=== PATIENT | female | born 1985 ===

== ENCOUNTER 2017-09-04 10:03 | Emergency (ER) | payer SELFPAY ==
[2017-09-04 10:10] VITALS: O2SAT 100
[2017-09-04 14:31] VITALS: BP 118/70; PULSE 61; RESP 16; TEMP 98.3
== END 2017-09-04 14:30 | disposition home or self-care (01) ==
LOC: H.ER 10:03
DX: M54.9 Dorsalgia, unspecified (principal)

== ENCOUNTER 2017-09-24 08:55 | Emergency (ER) | payer OTHER, SELFPAY ==
[2017-09-24 09:09] VITALS: TEMP 97.9; BMI 23.8
[2017-09-24 09:59] LABS: BASO % 0.5 % (0.0-2.0); EOS # 0.1 K/uL (0.0-0.7); EOS % 2.4 % (0.0-4.0); HEMATOCRIT 38.4 % (34.0-47.0); LYMPH # 1.3 K/uL (1.0-4.3); MEAN CELL VOLUME 89.2 fl (81.0-99.0); MEAN CORPUSCULAR HEMOGLOBIN 30.9 pg (27.0-31.0); MEAN CORPUSCULAR HGB CONC 34.7 g/dL (33.0-37.0); MEAN PLATELET VOLUME 7.6 fl (7.2-11.7); MONO # 0.5 K/uL (0.0-0.8); MONO % 8.1 % (0.0-10.0); NRBC % 0.1 % (0.0-0.0); RED CELL DISTRIBUTION WIDTH 12.8 % (11.5-14.5); WHITE BLOOD COUNT 5.9 K/uL (4.8-10.8)
[2017-09-24 10:00] LABS: ALB/GLOB RATIO 1.4 (1.0-2.1); ALKALINE PHOSPHATASE 81 U/L (38-126); ALT/SGPT 33 U/L (9-52); AST/SGOT 29 U/L (14-36); BILIRUBIN,TOTAL 0.3 mg/dl (0.2-1.3); BLOOD UREA NITROGEN 7 mg/dl (7-17); CALCIUM 9.8 mg/dL (8.4-10.2); CARBON DIOXIDE 26 mmol/L (22-30); CHLORIDE 107 mmol/L (98-107); GFR AFRICAN-AMERICAN > 60; GLUCOSE,RANDOM 90 mg/dL (65-105); PARTIAL THROMBOPLASTIN TIME 29.9 Seconds (25.6-37.1); POTASSIUM 3.7 MMOL/L (3.6-5.0); SODIUM 144 mmol/l (132-148); TOTAL PROTEIN 7.7 G/DL (6.3-8.2)
--- NOTE | 2017-09-24 10:39 | ED PDOC ---
HPI: Chest Pain Time Seen by Provider: 09/24/17 09:13 Chief Complaint (Nursing): Chest Pain Chief Complaint (Provider): chest tightness History Per: Patient History/Exam Limitations: no limitations Onset/Duration Of Symptoms: Days (5-7) Current Symptoms Are (Timing): Intermittent Episodes Severity: Mild Quality: Tightness Associated Symptoms: denies: Nausea Exacerbating Factors: Deep Breathing Additional Complaint(s): 32yo female c/o central chest tightness ongoing for the last 5-7 days, associated with mild dyspnea on exertion. Denies orthopnea, syncope, dizziness, cough, fever or leg pain/swelling. Denies prior history of similar symptoms. States had "acid" in the past but this feels different. Denies history of blood clots, nonsmoker. PMD [facility] Past Medical History Reviewed: Historical Data, Nursing Documentation, Vital Signs Vital Signs: Last Vital Signs Temp 97.9 F 09/24/17 09:08 Pulse 71 09/24/17 10:52 Resp 20 09/24/17 09:08 BP 115/69 09/24/17 09:16 Pulse Ox 98 09/24/17 10:52 - Medical History PMH: Hepatitis, Kidney Stones (3 times), Chronic Kidney Disease, TIA - Surgical History Surgical History: No Surg Hx - Family History Family History: States: Unknown Family Hx, Stroke (father of stroke at age 37) Other Family History: grandfather [place] in 30s - Living Arrangements Living Arrangements: With Family - Social History Current smoker - smoking cessation education provided: No - Home Medications Home Medications: Ambulatory Orders Medication Instructions Recorded Ibuprofen [Motrin Tab] 600 mg PO Q6 PRN #15 tab 09/24/17 Ranitidine HCl [Zantac 75] 75 mg PO BID #10 tablet 09/24/17 - Allergies Allergies/Adverse Reactions: Allergies Allergy/AdvReac Type Severity Reaction Status Date / Time shellfish derived Allergy RASH Verified 09/24/17 09:13 Review of Systems Constitutional: Negative for: Fever, Chills Cardiovascular: Positive for: Chest Pain. Negative for: Palpitations, Orthopnea , Light Headedness Respiratory: Positive for: Shortness of Breath, SOB with Exertion, Pleuritic Pain. Negative for: Cough Gastrointestinal: Negative for: Nausea, Vomiting, Abdominal Pain Genitourinary Female: Negative for: Dysuria, Frequency Musculoskeletal: Negative for: Neck Pain, Shoulder Pain, Back Pain Skin: Negative for: Rash, Lesions, Jaundice Neurological: Negative for: Weakness, Numbness, Headache, Dizziness Psych: Negative for: Anxiety, Depression Physical Exam - Reviewed Nursing Documentation Reviewed: Yes Vital Signs Reviewed: Yes - Physical Exam Appears: Positive for: Well, Non-toxic, No Acute Distress Head Exam: Positive for: ATRAUMATIC, NORMAL INSPECTION, NORMOCEPHALIC Skin: Positive for: Normal Color, Warm, DRY Eye Exam: Positive for: EOMI, Normal appearance, PERRL ENT: Positive for: Normal ENT Inspection Neck: Positive for: Normal, Painless ROM Cardiovascular/Chest: Positive for: Regular Rate, Rhythm Respiratory: Positive for: CNT, Normal Breath Sounds Gastrointestinal/Abdominal: Positive for: Normal Exam, Bowel Sounds, Soft Back: Positive for: Normal Inspection Extremity: Positive for: Normal ROM Neurologic/Psych: Positive for: Alert, Oriented - Laboratory Results Result Diagrams: 09/24/17 09:38 09/24/17 09:38 Urine POC: Negative - ECG ECG: Positive for: Interpreted By Nd ECG Rhythm: Positive for: Normal QRS, Normal ST Segment Rate: 71 O2 Sat by Pulse Oximetry: 98 Pulse Ox Interpretation: Normal - Radiology X-Ray: Interpreted by Nd X-Ray Interpretation: No Acute Disease Medical Decision Making Medical Decision Making: workup initiated for atypical chest pain in otherwise healthy female labs, EKG, CXR Accession No. : [id number] Patient Name / ID : MICHAEL VILLA / [id number] Exam Date : 09/24/2017 12:16:02 ( Approved ) Study Comment : Sex / Age : F / 32Y Creator : Husma Olivas MD Dictator : Husam Olivas MD Tufting Machine Operator : Real Estate Development Manager : Husam Olivas MD Approver2 : Report Date : 09/24/2017 13:21:22 My Comment : PROCEDURE: CT Chest with contrast (Pulmonary Angiogram) HISTORY: persistent central chest pain/ dyspnea COMPARISON: None available. TECHNIQUE: Axial computed tomography images were obtained of the chest in the pulmonary arterial phase of enhancement. Coronal and sagittal reformatted images were created and reviewed. Maximum intensity projection (MIP) reconstructed images in the following planes : Axial only Intravenous contrast dose: Visipaque 320 90 mL. Mean Hounsfield unit values in the main pulmonary artery: 473.74 Radiation dose: Total exam DLP = 242.07 mGy-cm. This CT exam was performed using one or more of the following dose reduction techniques: Automated exposure control, adjustment of the mA and/or kV according to patient size, and/or use of iterative reconstruction technique. FINDINGS: PULMONARY ARTERIES: Unremarkable. No pulmonary embolism. AORTA: No acute findings. No thoracic aortic aneurysm. LUNGS: Unremarkable. No nodule, mass or pulmonary consolidation. PLEURAL SPACES: Unremarkable. No effusion or pneuomothorax. HEART: Unremarkable. No cardiomegaly. No significant pericardial effusion. LYMPH NODES: No lymphadenopathy. BONES, CHEST WALL: GB EF view of the great aunt yes OTHER FINDINGS: Unremarkable. IMPRESSION: Unremarkable CT pulmonary angiogram. No pulmonary embolus. Heart Score 0 Adalberto 0 Wells 0 Followup PMD for further testing. Return to ER for any worse or new symptoms. Disposition - Clinical Impression Clinical Impression: Chest pain - Patient ED Disposition Is Patient to be Admitted: No Counseled Patient/Family Regarding: Studies Performed, Diagnosis, Need For Followup - Disposition Disposition: Routine/Home Disposition Time: 13:51 (') Condition: STABLE Additional Instructions: Return to ER for any new or worsening symptoms. Prescriptions: Ibuprofen [Motrin Tab] 600 mg PO Q6 PRN #15 tab PRN Reason: Pain, Moderate (4-7) Ranitidine HCl [Zantac 75] 75 mg PO BID #10 tablet Instructions: Chest Pain (ED) Forms: [employer] ([place]), [facility] ED School/Work Excuse
[2017-09-24] MEDS ORDERED: Iodixanol 320 MG/ML 100 ML BOTTLE IV ONE (11:57)
[2017-09-24] MEDS ORDERED: Sodium Chloride 0.9% 50 ML IV ONE (11:57)
--- NOTE | 2017-09-24 12:08 | RAD ---
HISTORY: COMPARISON: 09/12/2014. TECHNIQUE: Chest PA and lateral FINDINGS: LINES AND TUBES: None. LUNG AND PLEURA: The lungs are well inflated and clear. HEART AND MEDIASTINUM: The heart is not enlarged. The hilar and mediastinal contours are within normal limits. SKELETAL STRUCTURES: The bony structures are within normal limits for the patient's age. VISUALIZED UPPER ABDOMEN: Normal. OTHER FINDINGS: None. IMPRESSION: No active pulmonary disease.
--- NOTE | 2017-09-24 13:23 | CT ---
PROCEDURE: CT Chest with contrast (Pulmonary Angiogram) HISTORY: persistent central chest pain/ dyspnea COMPARISON: None available. TECHNIQUE: Axial computed tomography images were obtained of the chest in the pulmonary arterial phase of enhancement. Coronal and sagittal reformatted images were created and reviewed. Maximum intensity projection (MIP) reconstructed images in the following planes: Axial only Intravenous contrast dose: Visipaque 320 90 mL. Mean Hounsfield unit values in the main pulmonary artery: 473.74 Radiation dose: Total exam DLP = 242.07 mGy-cm. This CT exam was performed using one or more of the following dose reduction techniques: Automated exposure control, adjustment of the mA and/or kV according to patient size, and/or use of iterative reconstruction technique. FINDINGS: PULMONARY ARTERIES: Unremarkable. No pulmonary embolism. AORTA: No acute findings. No thoracic aortic aneurysm. LUNGS: Unremarkable. No nodule, mass or pulmonary consolidation. PLEURAL SPACES: Unremarkable. No effusion or pneuomothorax. HEART: Unremarkable. No cardiomegaly. No significant pericardial effusion. LYMPH NODES: No lymphadenopathy. BONES, CHEST WALL: GB EF view of the great aunt yes OTHER FINDINGS: Unremarkable. IMPRESSION: Unremarkable CT pulmonary angiogram. No pulmonary embolus.
[2017-09-24 14:11] VITALS: BP 100/62; PULSE 70; RESP 16; O2SAT 100
--- NOTE | 2017-09-26 08:50 | CARD ---
APPROVED REPORT EKG Measurement Heart [id number] <Conclusion> Normal sinus rhythm Normal ECG
== END 2017-09-24 14:09 | disposition home or self-care (01) ==
LOC: H.ER 08:55
DX: R07.89 Other chest pain (principal); N18.9 Chronic kidney disease, unspecified; Z86.73 Personal history of transient ischemic attack (TIA), and cerebral infarction without residual deficits; Z87.442 Personal history of urinary calculi
CPT/HCPCS: 71020; 71275; 80053; 80324; 80345; 80346; 80349; 80353; 80358; 80361; 81025; 83992; 84484; 85025; 85378; 85610; 85730; 93005; 99284; J1885; Q9967

== ENCOUNTER 2017-12-09 14:48 | Emergency (ER) | payer OTHER ==
[2017-12-09 14:49] VITALS: BMI 23.8
[2017-12-09 14:55] VITALS: RESP 16; TEMP 98.1
--- NOTE | 2017-12-09 15:22 | ED PDOC ---
HPI: General Adult Time Seen by Provider: 12/09/17 15:00 Chief Complaint (Nursing): Back Pain Chief Complaint (Provider): Left flank pain History Per: Patient History/Exam Limitations: no limitations Onset/Duration Of Symptoms: Days (x1 week but worsened over the last 2 days ) Current Symptoms Are (Timing): Still Present Additional Complaint(s): 32 year old female with a past medical history of irritable bowel syndrome (IBS) , chronic back pain, and naturally occurring spinal fusion who presents to the emergency department with a complaint of a left flank pain that started 1 week ago. Reports over the last 2 days pain has become more severe associated with a subjective fever, chills, nausea, and decreased appetite. States having 1 episode yesterday of attempting to urinate with trouble going for 15 minutes but had resolved since. Denies vomiting, diarrhea, constipation, frequency, burning sensation while urinating or blood in urine, and black or blood stools. Patient is a vegan. Of note, patient reports 2 episodes where she may have had a kidney stone in the past. Once in seventh grade with blood urine and prescribed antibiotics. As well as an episode of flank pain 10 years ago with an unremarkable ultrasound. PMD: Clinic Past Medical History Reviewed: Historical Data, Nursing Documentation, Vital Signs Vital Signs: Last Vital Signs Temp 98.1 F 12/09/17 14:52 Pulse 70 12/09/17 14:52 Resp 16 12/09/17 14:52 BP 99/69 L 12/09/17 14:52 Pulse Ox 99 12/09/17 18:04 - Medical History PMH: Back Problems (Chronic back pain), Hepatitis, Kidney Stones (3 times), Chronic Kidney Disease, TIA Other PMH: Irritable bowel syndrome and Naturally occurring spinal fusion - Surgical History Surgical History: No Surg Hx - Family History Family History: States: Stroke (father of stroke at age 37), Diabetes - Social History Current smoker - smoking cessation education provided: No Alcohol: None Drugs: Denies - Home Medications Home Medications: Ambulatory Orders Medication Instructions Recorded Ibuprofen [Motrin Tab] 600 mg PO Q6 PRN #15 tab 09/24/17 Ranitidine HCl [Zantac 75] 75 mg PO BID #10 tablet 09/24/17 Ibuprofen [Motrin Tab] 600 mg PO Q8 PRN #60 tab 12/09/17 Ondansetron ODT [Zofran ODT] 1 odt PO Q6 PRN #20 odt 12/09/17 Phenazopyridine [Phenazopyridine 200 mg PO Q12 PRN #20 tab 12/09/17 HCl] - Allergies Allergies/Adverse Reactions: Allergies Allergy/AdvReac Type Severity Reaction Status Date / Time shellfish derived Allergy RASH Verified 12/09/17 14:52 Review of Systems ROS Statement: Except As Marked, All Systems Reviewed And Found Negative (As per HPI, otherwise negative) Constitutional: Positive for: Fever (subjective), Chills, Other (decreased appetite) Gastrointestinal: Positive for: Nausea. Negative for: Vomiting, Diarrhea, Constipation, Melena, Hematochezia Genitourinary Female: Negative for: Dysuria, Frequency, Hematuria Musculoskeletal: Positive for: Back Pain (Left flank pain) Physical Exam - Reviewed Nursing Documentation Reviewed: Yes Vital Signs Reviewed: Yes - Physical Exam Appears: Positive for: Non-toxic, In Acute Distress (mild painful) Head Exam: Positive for: ATRAUMATIC, NORMOCEPHALIC Skin: Positive for: Warm, Dry Eye Exam: Positive for: EOMI, PERRL ENT: Positive for: Pharynx Is (clear with tacky mucus membranes). Negative for : Pharyngeal Erythema Neck: Positive for: Painless ROM, Supple Cardiovascular/Chest: Positive for: Regular Rate, Rhythm. Negative for: Murmur Respiratory: Positive for: Normal Breath Sounds. Negative for: Rales, Respiratory Distress Gastrointestinal/Abdominal: Positive for: Bowel Sounds, Soft, Tenderness (LUQ). Negative for: Mass, Distended, Guarding, Rebound Back: Positive for: L CVA Tenderness. Negative for: R CVA Tenderness, Vertebral Tenderness Extremity: Positive for: Normal ROM. Negative for: Deformity Lymphatic: Negative for: Adenopathy Neurologic/Psych: Positive for: Alert. Negative for: Motor/Sensory Deficits - Laboratory Results Result Diagrams: 12/09/17 17:05 12/09/17 17:05 - ECG O2 Sat by Pulse Oximetry: 99 (RA) Pulse Ox Interpretation: Normal Medical Decision Making Medical Decision Making: Time: 1507 Initial impression: Left flank pain differential includes urinary tract infection (UTI), pyelonephritis, muscle strain, and renal colic Initial plan: --Urine DIP & Preg Time: 1520 --Labs and Chemistry were ordered --Toradol 15 mg IVP --Tylenol 975 mg PO --Reevaluation Time: 1535 Abd & Pelvis CT Time: 1705 --Lipase: 83 Time: 1731 --Abd & Pelvis CT FINDINGS: LOWER THORAX: There is subsegmental atelectasis in the lung bases. LIVER: Normal in size. No gross lesion or ductal dilatation. GALLBLADDER AND BILE DUCTS: No calcified gallstones. PANCREAS: Unremarkable. No gross lesion or ductal dilatation. SPLEEN: Normal in size. ADRENALS: No discrete nodule. KIDNEYS AND URETERS: The kidneys are normal in size without nephrolithiasis. Mild fullness in both collecting systems is likely related to an over distended urinary bladder. VASCULATURE: No aortic aneurysm. BOWEL: The small bowel loops are normal in caliber. There is large amount of stool in the colon. APPENDIX: Normal appendix. PERITONEUM: No free fluid. No free air. LYMPH NODES: No enlarged lymph nodes. BLADDER: Over distended. REPRODUCTIVE: The uterus is normal in size. There are few phleboliths in the left hemipelvis. BONES: No acute fracture. OTHER FINDINGS: None. IMPRESSION: 1. No evidence of nephrolithiasis or obstructive uropathy. 2. Over distended urinary bladder. Mild fullness in both collecting systems is likely related to over distended bladder. No clinically significant lab abnormalities. DW pt findings. Stable for dc. Advised follow up urgently for further management and reasons to rter reviewed with patient. Scribe Attestation: Documented by Silvina El, acting as a scribe for Corry Fuentes MD. Provider Scribe Attestation: All medical record entries made by the Scribe were at my direction and personally dictated by me. I have reviewed the chart and agree that the record accurately reflects my personal performance of the history, physical exam, medical decision making, and the department course for this patient. I have also personally directed, reviewed, and agree with the discharge instructions and disposition. Disposition - Clinical Impression Clinical Impression: Flank pain Counseled Patient/Family Regarding: Studies Performed, Diagnosis, Need For Followup, Rx Given - Disposition Referrals: [facility] [Outside] - 12/10/17 Disposition: Routine/Home Disposition Time: 18:09 Condition: IMPROVED Additional Instructions: Continue to drink plenty of hydrating fluids and rest. Follow up with the clinic by the end of the week. Prescriptions: Ibuprofen [Motrin Tab] 600 mg PO Q8 PRN #60 tab PRN Reason: Pain, Moderate (4-7) Ondansetron ODT [Zofran ODT] 1 odt PO Q6 PRN #20 odt PRN Reason: Nausea/Vomiting Phenazopyridine [Phenazopyridine HCl] 200 mg PO Q12 PRN #20 tab PRN Reason: Dysuria Instructions: Flank Pain (ED) Forms: [employer] ED School/Work Excuse
[2017-12-09 17:09] LABS: BASO # 0.1 K/uL (0.0-0.2); BASO % 0.7 % (0.0-2.0); EOS # 0.2 K/uL (0.0-0.7); EOS % 2.9 % (0.0-4.0); HEMOGLOBIN 13.4 g/dL (12.0-16.0); LYMPH % 23.5 % (20.0-40.0); MEAN CELL VOLUME 92.1 fl (81.0-99.0); MEAN CORPUSCULAR HEMOGLOBIN 30.1 pg (27.0-31.0); MEAN CORPUSCULAR HGB CONC 32.7 g/dL (33.0-37.0); MEAN PLATELET VOLUME 7.1 fl (7.2-11.7); MONO # 0.6 K/uL (0.0-0.8); NEUT # 5.5 K/uL (1.8-7.0); NEUT % 65.9 % (50.0-75.0); NRBC % 0.1 % (0.0-0.0); RBC 4.44 Mil/uL (3.80-5.20); RED CELL DISTRIBUTION WIDTH 12.8 % (11.5-14.5); WHITE BLOOD COUNT 8.4 K/uL (4.8-10.8)
[2017-12-09 17:30] LABS: ALB/GLOB RATIO 1.2 (1.0-2.1); ALBUMIN 4.4 g/dL (3.5-5.0); ALT/SGPT 39 U/L (9-52); AST/SGOT 32 U/L (14-36); BLOOD UREA NITROGEN 6 mg/dl (7-17); CALCIUM 9.2 mg/dL (8.4-10.2); GFR AFRICAN-AMERICAN > 60; GFR NON-AFRICAN AMERICAN > 60; LIPASE 83 U/L (23-300)
--- NOTE | 2017-12-09 17:33 | CT ---
PROCEDURE: CT Abdomen and Pelvis without intravenous contrast HISTORY: Left flank pain r/o renal stone COMPARISON: 02/15/2016. TECHNIQUE: CT scan of the abdomen and pelvis was performed without administration of intravenous contrast. Oral contrast was not administered coronal and sagittal reformatted images were obtained. Radiation dose: Total exam DLP = 450.55 mGy-cm. This CT exam was performed using one or more of the following dose reduction techniques: Automated exposure control, adjustment of the mA and/or kV according to patient size, and/or use of iterative reconstruction technique. FINDINGS: LOWER THORAX: There is subsegmental atelectasis in the lung bases. LIVER: Normal in size. No gross lesion or ductal dilatation. GALLBLADDER AND BILE DUCTS: No calcified gallstones. PANCREAS: Unremarkable. No gross lesion or ductal dilatation. SPLEEN: Normal in size. ADRENALS: No discrete nodule. KIDNEYS AND URETERS: The kidneys are normal in size without nephrolithiasis. Mild fullness in both collecting systems is likely related to an over distended urinary bladder. VASCULATURE: No aortic aneurysm. BOWEL: The small bowel loops are normal in caliber. There is large amount of stool in the colon. APPENDIX: Normal appendix. PERITONEUM: No free fluid. No free air. LYMPH NODES: No enlarged lymph nodes. BLADDER: Over distended. REPRODUCTIVE: The uterus is normal in size. There are few phleboliths in the left hemipelvis. BONES: No acute fracture. OTHER FINDINGS: None. IMPRESSION: 1. No evidence of nephrolithiasis or obstructive uropathy. 2. Over distended urinary bladder. Mild fullness in both collecting systems is likely related to over distended bladder.
[2017-12-09] MEDS: Sodium Chloride 0.9% 1,000 ML IV STA (17:58)
[2017-12-09 18:48] VITALS: BP 96/59; PULSE 68; O2SAT 100
== END 2017-12-09 18:59 | disposition home or self-care (01) ==
LOC: H.ER 14:48
DX: R10.9 Unspecified abdominal pain (principal); K58.9 Irritable bowel syndrome, unspecified; Z86.73 Personal history of transient ischemic attack (TIA), and cerebral infarction without residual deficits; Z87.442 Personal history of urinary calculi; G89.29 Other chronic pain
CPT/HCPCS: 74176; 80053; 81025; 83690; 85025; 96361; 96374; 99283; J2405; J7040

== ENCOUNTER 2018-07-13 01:01 | Observation (INO) | payer MEDICAID, OTHER ==
[2018-07-13 01:01] VITALS: BMI 23.8
--- NOTE | 2018-07-13 01:52 | ED PDOC ---
HPI:STROKE - Time Time: 01:50 - Historian Historian: Patient - Chief Complaint Chief Complaint: Weakness - Onset Date: 07/12/18 Time: 22:00 Onset: Hours - Timing Timing: Currently Symptomatic - Context Context: Walking - Location Locate left: Upper extremity - Notes: Notes:: 33yo female, history of GERD, cerebellar tonsillar ectopia, cervical radiculopathy, comes to ER for evaluation of sudden onset left arm numbness at 22:00 last night. Patient states she was walking her dog when she suddenly felt the numbness. She also reports a headache and dizziness; denies any vision changes, vomiting, and offers no additional complaints. Patient states she has a history of cervical disk herniation but states she has not has such symptoms before. PMD: [facility] NIHSS Stroke Scale - Date/Time Evaluation Performed Date Performed: 07/13/18 Time Performed: 01:50 When Was NIHSS Performed: Baseline - How Severe is the Stroke Level of Consciousness: 0=Alert LOC to Questions: 0=Both comments correct LOC to commands: 0=Obeys both correctly Best Gaze: 0=Normal Visual: 0=No visual loss Facial: 0=Normal Motor Arm - Left: 0=No drift Motor Arm - Right: 0=No drift Motor Leg - Left: 0=No drift Motor Leg - Right: 0=No drift Limb Ataxia: 0=Absent Sensory: 0=Normal Best Language: 0=No aphasia Dysarthia: 0=Normal articulation Extinction & Inattention (Neglect): 0=Normal, no object Score: 0 rTPA Inclusion/Exclusion - Refusal of Treatment Patient Refused Treatment: No - Inclusion Criteria for Altepase Patient is 18 years or Older: Yes Time of Onset is Well Established to be Less Than 270 Minute Before Treatment Would Begin: No Risk/Benefit Discussed With Patient/Family Member Present: No - Exclusion Criteria for Altepase Uncontrolled Hypertension at Time of Treatment (Systolic BP above 185 or Diastolic BP above 110 mmHg): No Active Internal Bleeding: No Known Bleeding Diathesis Including but Not Limited to: Platelets Below 100,000/ mm,PTT Above 40 sec After Heparin Use, Current Use of Oral Anitcoagulant With INR Greater Than 1.7 or PT Greater Than 15 secs: No Evidence of an Intracranial Hemorrhage: No Evidence of Major Acute Infarct With Signs Greater Than 1/3 MCA Territory: No Suspicion of Subarachnoid Hemorrhage on Pretreatment Evaluation Even if CT Head Negative For Hemorrhage: No - Warning to TPA With Conditions Following Conditions Weighed Against Anticipated Benefit: No Past Medical History Reviewed: Historical Data, Nursing Documentation, Vital Signs Vital Signs: Last Vital Signs Temp 98.0 F 07/13/18 01:19 Pulse 84 07/13/18 01:19 Resp 16 07/13/18 01:19 BP Pulse Ox 100 07/13/18 01:19 - Medical History PMH: Back Problems (Chronic back pain), Hepatitis, Kidney Stones (3 times), Chronic Kidney Disease, TIA - Surgical History Surgical History: No Surg Hx - Family History Family History: States: Stroke (father of stroke at age 37), Diabetes - Social History Current smoker - smoking cessation education provided: No Alcohol: None Drugs: Denies - Home Medications Home Medications: Ambulatory Orders Medication Instructions Recorded Meloxicam [Mobic] 15 mg PO DAILY PRN 07/13/18 - Allergies Allergies/Adverse Reactions: Allergies Allergy/AdvReac Type Severity Reaction Status Date / Time shellfish derived Allergy RASH Verified 12/09/17 14:52 Review of Systems ROS Statement: Except As Marked, All Systems Reviewed And Found Negative Eyes: Negative for: Vision Change Cardiovascular: Negative for: Chest Pain Respiratory: Negative for: Shortness of Breath Neurological: Positive for: Numbness (left arm), Headache, Dizziness Physical Exam - Reviewed Nursing Documentation Reviewed: Yes Vital Signs Reviewed: Yes - Physical Exam Appears: Positive for: Non-toxic Head Exam: Positive for: ATRAUMATIC, NORMAL INSPECTION, NORMOCEPHALIC Skin: Positive for: Normal Color, Warm, Dry Eye Exam: Positive for: Normal appearance, EOMI, PERRL ENT: Positive for: Normal ENT Inspection Neck: Positive for: Normal, Supple Cardiovascular/Chest: Positive for: Regular Rate, Rhythm. Negative for: Murmur Respiratory: Positive for: Normal Breath Sounds. Negative for: Respiratory Distress Pulses-Radial (L): 2+ Pulses-Radial (R): 2+ Gastrointestinal/Abdominal: Positive for: Normal Exam, Soft. Negative for: Tenderness, Guarding, Rebound Back: Positive for: Normal Inspection. Negative for: L CVA Tenderness, R CVA Tenderness, Vertebral Tenderness Extremity: Positive for: Normal ROM (x 4). Negative for: Pedal Edema, Deformity , Swelling Neurologic/Psych: Positive for: Alert, doll wig maker II-XII (intact), Oriented, Motor/ Sensory Deficits (Normal ROM of all extremities; +subjective numbness left upper extremity), Cerebellar Tests (normal), Gait (steady). Negative for: Aphasia, Facial Droop - Laboratory Results Result Diagrams: 07/13/18 01:55 07/13/18 01:55 - ECG O2 Sat by Pulse Oximetry: 100 (RA) Pulse Ox Interpretation: Normal Medical Decision Making Medical Decision Making: Impression: Left upper extremity numbness, r/o CVA Plan: -- CT Head w/o contrast -- Labs -- IV fluids -- Chest x-ray 0150 [address] stroke [address] 0206 CT Head FINDINGS: Brain: Unremarkable. No hemorrhage. No significant white matter disease. No edema. Ventricles: Unremarkable. No ventriculomegaly. Bones/joints: Unremarkable. No acute fracture. Soft tissues: Unremarkable. Sinuses: Unremarkable as visualized. No acute sinusitis. Mastoid air cells: Unremarkable as visualized. No mastoid effusion. IMPRESSION: No evidence of an acute intracranial abnormality. [address] Rizvi, neurologist continuity reader. [address] Rizvi, and requesting CTA Head and neck. Also requesting Aspirin 325mg PO. 0307 CTA Head FINDINGS: Right internal carotid artery: No acute findings. Intracranial segment is patent with no significant stenosis. No aneurysm. Right anterior cerebral artery: Unremarkable. No occlusion or significant stenosis. No aneurysm. Right middle cerebral artery: Unremarkable. No occlusion or significant stenosis. No aneurysm. Right posterior cerebral artery: Unremarkable. No occlusion or significant stenosis. No aneurysm. Right vertebral artery: Unremarkable as visualized. Left internal carotid artery: No acute findings. Intracranial segment is patent with no significant stenosis. No aneurysm. Left anterior cerebral artery: Unremarkable. No occlusion or significant stenosis. No aneurysm. Left middle cerebral artery: Unremarkable. No occlusion or significant stenosis. No aneurysm. Left posterior cerebral artery: Unremarkable. No occlusion or significant stenosis. No aneurysm. Left vertebral artery: Unremarkable as visualized. Basilar artery: Unremarkable. No occlusion or significant stenosis. No aneurysm. IMPRESSION: Normal head CTA. CTA Neck FINDINGS: VASCULATURE: Right common carotid artery: Unremarkable. No significant stenosis. No dissection or occlusion. Right internal carotid artery: Unremarkable. Extracranial segment is patent with no significant stenosis. No dissection or occlusion. Right external carotid artery: Unremarkable. No occlusion. Right vertebral artery: Unremarkable. No significant stenosis. No dissection or occlusion. Left common carotid artery: Unremarkable. No significant stenosis. No dissection or occlusion. Left internal carotid artery: Unremarkable. Extracranial segment is patent with no significant stenosis. No dissection or occlusion. Left external carotid artery: Unremarkable. No occlusion. Left vertebral artery: Dominant left vertebral artery. No significant stenosis. No dissection or occlusion. NECK: Bones/joints: No acute fracture. No dislocation. Soft tissues: Unremarkable as visualized. No mass. CAROTID STENOSIS REFERENCE USING NASCET CRITERIA: % ICA stenosis = (1 - narrowest ICA diameter/diameter of distal cervical ICA) x 100. Mild - <50% stenosis. Moderate - 50-69% stenosis. Severe - 70-94% stenosis. Near occlusion - 95-99% stenosis. Occluded - 100% stenosis. IMPRESSION: Normal neck CTA. 0321 pt aware of results. will give ASA as per Dr rizvi. Patient admitted under family practice; FP resident aware. Scribe Attestation: Documented by Chelsea Brennan, acting as a scribe for Yady Horn MD. Provider Scribe Attestation: All medical record entries made by the Scribe were at my direction and personally dictated by me. I have reviewed the chart and agree that the record accurately reflects my personal performance of the history, physical exam, medical decision making, and the department course for this patient. I have also personally directed, reviewed, and agree with the discharge instructions and disposition. Disposition - Clinical Impression Clinical Impression: Dizziness, Left arm weakness - Patient ED Disposition Is Patient to be Admitted: Yes Counseled Patient/Family Regarding: Studies Performed, Diagnosis - Disposition Disposition Time: 03:25 Condition: STABLE - PA / PRODUCT/INDUSTRY CONSULTANT / Resident Statement / has reviewed & agrees with the documentation as recorded. (These Statements are not applicable as provider treated patient herself.) / has examined the patient and agrees with the treatment plan. (These Statements are not applicable as provider treated patient herself.)
[2018-07-13 02:16] LABS: BASO # 0.1 K/uL (0.0-0.2); BASO % 0.7 % (0.0-2.0); EOS # 0.3 K/uL (0.0-0.7); EOS % 4.1 % (0.0-4.0); HEMOGLOBIN 12.9 g/dL (12.0-16.0); LYMPH % 26.3 % (20.0-40.0); MEAN CELL VOLUME 91.5 fl (81.0-99.0); MEAN CORPUSCULAR HEMOGLOBIN 30.9 pg (27.0-31.0); MEAN CORPUSCULAR HGB CONC 33.8 g/dL (33.0-37.0); MEAN PLATELET VOLUME 7.9 fl (7.2-11.7); MONO # 0.6 K/uL (0.0-0.8); MONO % 8.1 % (0.0-10.0); NEUT # 4.6 K/uL (1.8-7.0); NEUT % 60.8 % (50.0-75.0); RBC 4.16 Mil/uL (3.80-5.20); RED CELL DISTRIBUTION WIDTH 12.8 % (11.5-14.5); WHITE BLOOD COUNT 7.6 K/uL (4.8-10.8)
[2018-07-13] MEDS: Sodium Chloride 0.9% 1,000 ML IV SCH ×3 (02:18→22:06)
[2018-07-13 02:21] LABS: ALB/GLOB RATIO 1.2 (1.0-2.1); ALBUMIN 4.3 g/dL (3.5-5.0); ALT/SGPT 16 U/L (9-52); AST/SGOT 34 U/L (14-36); BLOOD UREA NITROGEN 8 mg/dl (7-17); CALCIUM 9.2 mg/dL (8.4-10.2); GFR AFRICAN-AMERICAN > 60; GFR NON-AFRICAN AMERICAN > 60; HDL CHOLESTEROL 52 MG/DL (30-70)
[2018-07-13 02:24] LABS: PROTHROMBIN TIME 11.4 Seconds (9.8-13.1)
[2018-07-13 02:26] LABS: PARTIAL THROMBOPLASTIN TIME 29.4 Seconds (25.6-37.1)
[2018-07-13 02:32] LABS: LDL CHOLESTEROL 64 mg/dL (0-129)
[2018-07-13] MEDS ORDERED: Iodixanol 320 MG/ML 100 ML BOTTLE IV ONE (02:36)
[2018-07-13] MEDS ORDERED: Sodium Chloride 0.9% 50 ML IV ONE (02:36)
--- NOTE | 2018-07-13 04:21 | CP.PCM.HP ---
History of Present Illness - History of Present Illness History of Present Illness: 33 YO F w/ h/o GERD, Cerebellar tonsilar ectopia, cervical radiculopathy presented to the hospital after she was walking her dog around 10:30 pm and started feeling a spinning sensation and had to lean against something to support herself. Spinning sensation was followed by numbness of her left leg and then her left arm. Denies any falls, loss of urine or incontinence. Patient states at that point she was still able to move her leg, however felt difficulty bearing weight on it. - She had a similar incident in 2013 when she was hospitalized but at that time she had more involvement with her face and arm but not her left leg. At that time she was thoroughly worked up , and had no pertinent findings. - Patient was recently found to have mild cerbellar tonsilar ectopia by her neurologist. - Denies any increase stress at home or work. Denies any illciit drug use. Denies any recent tick bites. PMH: Cerebellar tonsilar ectopia, Cervical radiclopathy, Cervical fusion (C1-C3 ) PSH: None Allergy: Shellfish, benzyl peroxide FH:Sister had ARDS during . Grandfather had a stroke at a young age in his 30's. SH: Sexually active with only females, going to school for graphic design, Denies any alcohol, smoking or illicit drug use. OBHX:June 19, 2018, Regular menstral cycles ROS: negative except as mentioned in HPI PMD: [facility] Neurologist: Dr. David Borden ER course: Code stroke was called ASA 325mg x 1 CT Head FINDINGS: No evidence of an acute intracranial abnormality. Neurology consulted Dr. Rizvi CTA Head FINDINGS: Normal head CTA. CTA Neck FINDINGS: Normal neck CTA. CBC: WNL CMP: WNL PT/INR: WNL Troponin x 1 neg Lipid panal : WNL NHISS SCORE: 0 Present on Admission - Present on Admission Any Indicators Present on Admission: No Past Patient History - Infectious Disease Hx of Infectious Diseases: None - Tetanus Immunizations Tetanus Immunization: Unknown - Past Medical History & Family History Past Medical History?: No - Past Social History Smoking Status: Never Smoked - CARDIAC Hx Cardiac Disorders: Yes Hx Hypotension: Yes - PULMONARY Hx Respiratory Disorders: No - NEUROLOGICAL Hx Transient Ischemic Attacks (TIA): Yes - HEENT Hx HEENT Problems: No - RENAL Hx Chronic Kidney Disease: Yes Hx Kidney Stones: Yes (3 times) - ENDOCRINE/METABOLIC Hx Endocrine Disorders: No - HEMATOLOGICAL/ONCOLOGICAL Hx Blood Disorders: No Hx AIDS: No - INTEGUMENTARY Hx Dermatological Problems: No - MUSCULOSKELETAL/RHEUMATOLOGICAL Hx Musculoskeletal Disorders: No Hx Falls: No - GASTROINTESTINAL Hx Gastrointestinal Disorders: No Hx Irritable Bowel: Yes - GENITOURINARY/GYNECOLOGICAL Hx Genitourinary Disorders: No - PSYCHIATRIC Hx Psychophysiologic Disorder: Yes Hx Substance Use: No Other/Comment: ADHD - SURGICAL HISTORY Hx Surgeries: No Other/Comment: TOP - ANESTHESIA Hx Anesthesia: Yes Hx Anesthesia Reactions: No Hx Malignant Hyperthermia: No Meds Allergies/Adverse Reactions: Allergies Allergy/AdvReac Type Severity Reaction Status Date / Time shellfish derived Allergy RASH Verified 12/09/17 14:52 Physical Exam - Constitutional Appears: No Acute Distress - Head Exam Head Exam: NORMAL INSPECTION - Eye Exam Eye Exam: Normal appearance - ENT Exam ENT Exam: Mucous Membranes Moist - Neck Exam Neck exam: Positive for: Normal Inspection - Respiratory Exam Respiratory Exam: Clear to Auscultation Bilateral, NORMAL BREATHING PATTERN. absent: Rhonchi, Wheezes - Cardiovascular Exam Cardiovascular Exam: REGULAR RHYTHM, +S1, +S2 - GI/Abdominal Exam GI & Abdominal Exam: Normal Bowel Sounds, Soft. absent: Tenderness - Neurological Exam Neurological exam: Alert, CN II-XII Intact, Oriented x3, Reflexes Normal Additional comments: No facial asymmetry or drop Cerebeller signs WNL - Sensation on left side of the body and face mildly less then the right side as per patient - DTR: 2+ B/L - Motor 5/5 intact. R> L - Gait patient unable to bear weight on left leg during walking - Psychiatric Exam Psychiatric exam: Normal Affect, Normal Mood - Skin Skin Exam: Normal Color, Warm Results - Vital Signs Recent Vital Signs: Last Vital Signs Temp 98.0 F 07/13/18 01:19 Pulse 59 L 07/13/18 02:17 Resp 18 07/13/18 02:17 BP 101/61 07/13/18 02:17 Pulse Ox 100 07/13/18 03:21 - Labs Result Diagrams: 07/13/18 01:55 07/13/18 01:55 Labs: Laboratory Results - last 24 hr 07/13/18 07/13/18 07/13/18 01:55 01:55 01:55 WBC 7.6 RBC 4.16 Hgb 12.9 Hct 38.0 MCV 91.5 MCH 30.9 MCHC 33.8 RDW 12.8 Plt Count 292 MPV 7.9 Neut % (Auto) 60.8 Lymph % (Auto) 26.3 [place] % (Auto) 8.1 Eos % (Auto) 4.1 H Baso % (Auto) 0.7 Neut # (Auto) 4.6 Lymph # (Auto) 2.0 [place] # (Auto) 0.6 Eos # (Auto) 0.3 Baso # (Auto) 0.1 PT 11.4 INR 1.0 APTT 29.4 Sodium 140 Potassium 3.9 Chloride 104 Carbon Dioxide 26 Anion Gap 14 BUN 8 Creatinine 0.6 L Est GFR ( Amer) > 60 Est GFR (Non-Af Amer) > 60 Random Glucose 104 Calcium 9.2 Total Bilirubin 0.6 AST 34 ALT 16 Alkaline Phosphatase 74 Troponin I < 0.0120 Total Protein 7.7 Albumin 4.3 Globulin 3.4 Albumin/Globulin Ratio 1.2 Triglycerides 46 D Cholesterol 132 LDL Cholesterol Direct 64 HDL Cholesterol 52 Blood Type Antibody Screen BBK History Checked 07/13/18 01:55 WBC RBC Hgb Hct MCV MCH MCHC RDW Plt Count MPV Neut % (Auto) Lymph % (Auto) [place] % (Auto) Eos % (Auto) Baso % (Auto) Neut # (Auto) Lymph # (Auto) [place] # (Auto) Eos # (Auto) Baso # (Auto) PT INR APTT Sodium Potassium Chloride Carbon Dioxide Anion Gap BUN Creatinine Est GFR ( Amer) Est GFR (Non-Af Amer) Random Glucose Calcium Total Bilirubin AST ALT Alkaline Phosphatase Troponin I Total Protein Albumin Globulin Albumin/Globulin Ratio Triglycerides Cholesterol LDL Cholesterol Direct HDL Cholesterol Blood Type O POSITIVE Antibody Screen Negative BBK History Checked Patient has bt Assessment & Plan - Assessment and Plan (Free Text) Assessment: 1) Dizziness with left arm and left leg weakness and tingling - NHISS score : 0 - Passed bedside swallow eval - TIA vs conversion disorder vs Tonsilar ectopia - CT head : WNL - CTA of head and neck: Unremarkable - ASA 325 mg x 1 in ER - Will continue to monitor on telemetry - Neurology consult appreciated. 2) DVT prophylaxis - SCD
--- NOTE | 2018-07-13 07:55 | CARD ---
APPROVED REPORT Date of service: 07/13/2018 EKG Measurement Heart [id number] <Conclusion> Normal sinus rhythm Normal ECG
--- NOTE | 2018-07-13 08:33 | RAD ---
Date of service: 07/13/2018 HISTORY: Code Stroke COMPARISON: 09/24/2017. FINDINGS: LUNGS: The lungs are well inflated and clear. PLEURA: No significant pleural effusion identified, no pneumothorax apparent. CARDIOVASCULAR: Normal. OSSEOUS STRUCTURES: No significant abnormalities. VISUALIZED UPPER ABDOMEN: Normal. OTHER FINDINGS: None. IMPRESSION: No active pulmonary disease.
--- NOTE | 2018-07-13 09:01 | CT ---
Date of service: 07/13/2018 PROCEDURE: CT HEAD WITHOUT CONTRAST. HISTORY: code stroke COMPARISON: 12/26/2016. TECHNIQUE: Axial computed tomography images were obtained through the head/brain without intravenous contrast. Coronal and sagittal reconstructed images. Radiation dose: Total exam DLP = 700.15 mGy-cm. This CT exam was performed using one or more of the following dose reduction techniques: Automated exposure control, adjustment of the mA and/or kV according to patient size, and/or use of iterative reconstruction technique. FINDINGS: HEMORRHAGE: No intracranial hemorrhage. BRAIN: No mass effect or edema. No atrophy or chronic microvascular ischemic changes. VENTRICLES: Unremarkable. No hydrocephalus. CALVARIUM: Unremarkable. PARANASAL SINUSES: Unremarkable as visualized. No significant inflammatory changes. MASTOID AIR CELLS: Unremarkable as visualized. No inflammatory changes. OTHER FINDINGS: None. IMPRESSION: No acute intracranial abnormalities. No significant findings to account for the clinical presentation. No significant interval change compared to the prior examination(s). Concordant results (preliminary interpretation) provided by [facility]. Procedure Completed: 01:58. Preliminary ([facility]) Report: Dictated and Authenticated: 02:06. Final Interpretation: 06:59. July 13, 2018.
--- NOTE | 2018-07-13 09:20 | CP.PCM.PN ---
Subjective - Date & Time of Evaluation Date of Evaluation: 07/13/18 Time of Evaluation: 07:30 - Subjective Subjective: Patient seen and examined this morning at bedside, NAD. Patient reports her symptoms has improved since yesterday, still numbness on left LE below the knee and left UE below elbow. Denies any speech changes, dizziness, blurred vision, ringing in ears or facial drops. Patient is tolerating PO intake, was able to ambulate w/o any assistance. Objective - Vital Signs/Intake and Output Vital Signs (last 24 hours): Temp Pulse Resp BP Pulse Ox 97.7 F 75 20 98/59 L 98 07/13/18 08:00 07/13/18 08:00 07/13/18 08:00 07/13/18 08:00 07/13/18 08:00 - Medications Medications: Current Medications Aspirin (Aspirin Chewable) 81 mg PO DAILY JENNIFER Atorvastatin Calcium (Lipitor) 20 mg PO DAILY JENNIFER Sodium Chloride (Sodium Chloride 0.9%) 1,000 mls @ 100 mls/hr IV .Q10H JENNIFER Last Admin: 07/13/18 02:18 Dose: 100 mls/hr Ibuprofen (Motrin Tab) 600 mg PO Q4 PRN PRN Reason: Pain, Mild (1-3) - Labs Labs: 07/13/18 01:55 07/13/18 01:55 PT 11.4 Seconds (9.8-13.1) 07/13/18 01:55 INR 1.0 07/13/18 01:55 APTT 29.4 Seconds (25.6-37.1) 07/13/18 01:55 - Constitutional Appears: No Acute Distress - Head Exam Head Exam: NORMAL INSPECTION - Eye Exam Eye Exam: EOMI, Normal appearance, PERRL Pupil Exam: NORMAL ACCOMODATION - ENT Exam ENT Exam: Mucous Membranes Moist, Normal Exam - Neck Exam Neck Exam: Full ROM, Normal Inspection - Respiratory Exam Respiratory Exam: Clear to Ausculation Bilateral, NORMAL BREATHING PATTERN. absent: Accessory Muscle Use, Chest Wall Tenderness, Decreased Breath Sounds - Cardiovascular Exam Cardiovascular Exam: REGULAR RHYTHM, +S1, +S2 - GI/Abdominal Exam GI & Abdominal Exam: Soft, Normal Bowel Sounds. absent: Tenderness, Rebound - Extremities Exam Extremities Exam: Full ROM, Normal Capillary Refill, Normal Inspection. absent : Pedal Edema, Tenderness Additional comments: sensory and motor intact - Back Exam Back Exam: NORMAL INSPECTION. absent: CVA tenderness (L), CVA tenderness (R) - Neurological Exam Neurological Exam: Alert, Awake, CN II-XII Intact, Normal Gait, Oriented x3 Neuro motor strength exam: Left Upper Extremity: 5, Right Upper Extremity: 5, Left Lower Extremity: 5, Right Lower Extremity: 5 - Psychiatric Exam Psychiatric exam: Normal Affect. absent: Agitated, Anxious, Depressed, Flat Affect - Skin Skin Exam: Dry, Intact, Normal Color, Warm Assessment and Plan - Assessment and Plan (Free Text) Assessment: A/P: 33 y/o female with PMH of GERD, Cerebellar tonsilar ectopia, cervical radiculopathy admitted to [facility] after an episode of dizziness and left side body numbness, possibly TIA vs conversion disorder vs Tonsilar ectopia. Dizziness with left arm and left leg weakness and tingling, possibly TIA vs conversion disorder vs Tonsilar ectopia - Improved, NHISS score: 0 - Passed bedside swallow eval - Neuro Consult, Dr. Rizvi, follow up recommendations - START Aspirin 81 mg PO daily,and Lipitor 20 mg PO daily - Follow up PT/OT evaluation and treatment DVT prophylaxis - SCD - Ambulating
--- NOTE | 2018-07-13 09:58 | CT ---
PROCEDURE: CTA HEAD AND NECK WITH CONTRAST HISTORY: Headache, dizziness COMPARISON: None available. TECHNIQUE: Initial noncontrast head CT was performed. Subsequently, CT angiogram of the head and neck were performed after the intravenous administration of 80 mL of Omnipaque 350. Contiguous 1.5mm thick images were obtained in the axial plane of the neck. 2-D coronal and sagittal MPR images were obtained. Imaging postprocessing was performed with 3-D images also obtained. A delayed contrast head CT was also obtained. This CT exam was performed using one or more of the following dose reduction techniques: Automated exposure control, adjustment of the mA and/or kV according to patient size, and/or use of iterative reconstruction technique. Contrast dose: 95 mL Visipaque 320 Radiation dose: Total exam DLP = 2044.66 mGy-cm. FINDINGS: HEAD: Right: The intracranial internal carotid artery, and anterior and middle cerebral arteries are widely patent. Left: The intracranial internal carotid artery, and anterior and middle cerebral arteries are widely patent. Posterior circulation: The visualized intracranial vertebral arteries, basilar artery and posterior cerebral arteries are widely patent. There is origin of bilateral posterior cerebral arteries with hypoplastic vertebrobasilar system. There is no endoluminal filling defect to suggest thrombus. There is no intracranial saccular aneurysm. NECK: There is a 2 vessel aortic arch with common origin of innominate and left common carotid arteries. There is no stenosis at the origins of the great vessels at the level of the aortic arch. Right Carotid: On the right, the common carotid, internal carotid and external carotid arteries are widely patent. There is no hemodynamically significant stenosis in the internal carotid artery by NASCET criteria. Left Carotid: On the left, the common carotid, internal carotid and external carotid arteries are widely patent.There is no hemodynamically significant stenosis in the internal carotid arteries. There is no hemodynamically significant stenosis in the internal carotid artery by NASCET criteria. The vertebral arteries are widely patent. The right vertebral artery is hypoplastic, an anatomic variant. The visualized soft tissues of the neck are normal. The visualized brain and cervical spine are within normal limits. The lung apices are clear. IMPRESSION: 1. No evidence of endoluminal thrombus,occlusion or definite significant stenosis in the intracranial arteries. 2. No evidence of hemodynamically significant stenosis in the internal carotid arteries. 3. Patent bilateral vertebral arteries.
--- NOTE | 2018-07-13 11:42 | CARD ---
APPROVED REPORT Date of service: 07/13/2018 EXAM: Two-dimensional and M-mode echocardiogram with Doppler, color Doppler with bubble study. Other Information Quality : GoodRhythm : NSR INDICATION CVA/TIA Left Side Numbness Echo Enhancing Agent Indication: Rule Out Septal Defect Agent/Amount Used: Agitated Saline 2D DIMENSIONS IVSd0.91 (0.7-1.1cm)LVDd4.08 (3.9-5.9cm) LVOT Diameter1.88 (1.8-2.4cm)PWd0.81 (0.7-1.1cm) IVSs0.95 (0.8-1.2cm)LVDs2.82 (2.5-4.0cm) FS (%) 30.8 %PWs1.02 (0.8-1.2cm) M-Mode DIMENSIONS Left Atrium (MM)3.25 (2.5-4.0cm)IVSd0.98 (0.7-1.1cm) Aortic Root2.39 (2.2-3.7cm)LVDd4.06 (4.0-5.6cm) Aortic Cusp Exc.1.77 (1.5-2.0cm)PWd0.81 (0.7-1.1cm) IVSs1.10 cmFS (%) 29 % LVDs2.89 (2.0-3.8cm)PWs1.12 cm Aortic Valve AoV Peak Vmksxovj84.9cm/Maria Teresa Peak GR.4mmHgLVOT Peak Dfhyankk43.4cm/s Mitral Valve MV E Idadthbp13.5cm/sMV DECEL [id number] A Yhuqldsh29.8cm/s MV ZJF60lyQ/A ratio3.0MVA (PHT)3.57cm2 TDI Lateral E' Peak V17.11cm/sMedial E' Peak V12.79cm/sE/Lateral E'5.2 E/Medial E'7.0 Pulmonary Valve PV Peak Ytuuptlf77.3cm/s Tricuspid Valve TR Peak Wirzjkbw080su/sRAP LLCFVBYW61htVjGF Peak Gr.11mmHg [id number] LEFT VENTRICLE The left ventricle is normal size. There is normal left ventricular wall thickness. The left ventricular ejection fraction is within the normal range. The Ejection Fraction is 55-60%. No regional wall motion abnormalities noted.. The left ventricular diastolic function is normal. No left ventricle thrombus noted on this study. There is no ventricular septal defect visualized. There is no mass noted in the left ventricle. RIGHT VENTRICLE The right ventricle is normal size. There is normal right ventricular wall thickness. The right ventricular systolic function is normal. ATRIA The left atrium size is normal. The right atrium size is normal. The interatrial septum is intact with no evidence for an atrial septal defect. Negative bubble study AORTIC VALVE The aortic valve is normal in structure. No aortic regurgitation is present. There is no aortic valvular stenosis. MITRAL VALVE The mitral valve is normal in structure. There is no mitral valve stenosis. There is mild mitral valve regurgitation noted. TRICUSPID VALVE The tricuspid valve is normal in structure. There is mild tricuspid valve regurgitation noted. PASP in normal range PULMONIC VALVE The pulmonary valve is normal in structure. There is no pulmonic valvular regurgitation. GREAT VESSELS The aortic root is normal in size. The ascending aorta is normal in size. The pulmonary artery is normal. The IVC is normal in size and collapses >50% with inspiration. PERICARDIAL EFFUSION There is no pericardial effusion. <Conclusion> Mild mitral insufficiency Mild TR with normal PASP Normal LV fucntion The Ejection Fraction is 55-60%. No evidence of ASD or PFO
[2018-07-13 13:24] LABS: BARBITURATES, UR NEGATIVE (NEGATIVE); BENZODIAZEPINES, UR NEGATIVE (NEGATIVE); OPIATES, UR NEGATIVE (NEGATIVE); PHENCYCLIDINE, UR NEGATIVE (NEGATIVE)
--- NOTE | 2018-07-13 16:57 | CP.PCM.CON ---
History of Present Illness - History of Present Illness History of Present Illness: 33 yr old right handed woman with pmh of arnold chiari malformation who had sudden onset left leg numbness that started while she was at work, and then progressed to left arm and face numbness, which has occured before several years ago. At this time, Miss Sen says that she was diagnosed with tonsillar ectopia, but neurosurgeon did not feel she was a surgical candidate. On examination today, she has similar symptoms of numbness but no associated weakness or headache. She has no family history or personal history of stroke. PMH/PSH: no dm, no htn FH/SH: unmarried. no tobaco, no etoh. All: nkda. on exam: Normal neurological examination. NO sensory findings noted. Past Patient History - Infectious Disease Hx of Infectious Diseases: None - Tetanus Immunizations Tetanus Immunization: Unknown - Past Medical History & Family History Past Medical History?: No - Past Social History Smoking Status: Never Smoked - CARDIAC Hx Cardiac Disorders: Yes Hx Hypotension: Yes - PULMONARY Hx Respiratory Disorders: No - NEUROLOGICAL Hx Transient Ischemic Attacks (TIA): Yes - HEENT Hx HEENT Problems: No - RENAL Hx Chronic Kidney Disease: Yes Hx Kidney Stones: Yes (3 times) - ENDOCRINE/METABOLIC Hx Endocrine Disorders: No - HEMATOLOGICAL/ONCOLOGICAL Hx Blood Disorders: No Hx AIDS: No - INTEGUMENTARY Hx Dermatological Problems: No - MUSCULOSKELETAL/RHEUMATOLOGICAL Hx Musculoskeletal Disorders: No Hx Falls: No - GASTROINTESTINAL Hx Gastrointestinal Disorders: No Hx Irritable Bowel: Yes - GENITOURINARY/GYNECOLOGICAL Hx Genitourinary Disorders: No - PSYCHIATRIC Hx Psychophysiologic Disorder: Yes Hx Substance Use: No Other/Comment: ADHD - SURGICAL HISTORY Hx Surgeries: No Other/Comment: TOP - ANESTHESIA Hx Anesthesia: Yes Hx Anesthesia Reactions: No Hx Malignant Hyperthermia: No Meds Allergies/Adverse Reactions: Allergies Allergy/AdvReac Type Severity Reaction Status Date / Time shellfish derived Allergy RASH Verified 12/09/17 14:52 - Medications Medications: Current Medications Aspirin (Aspirin Chewable) 81 mg PO DAILY JENNIFER Atorvastatin Calcium (Lipitor) 20 mg PO HS JENNIFER Sodium Chloride (Sodium Chloride 0.9%) 1,000 mls @ 100 mls/hr IV .Q10H JENNIFRE Last Admin: 07/13/18 12:40 Dose: 100 mls/hr Ibuprofen (Motrin Tab) 600 mg PO Q4 PRN PRN Reason: Pain, Mild (1-3) Results - Vital Signs Recent Vital Signs: Last Vital Signs Temp 98.5 F 07/13/18 14:09 Pulse 66 07/13/18 14:09 Resp 18 07/13/18 14:09 BP 105/66 07/13/18 14:09 Pulse Ox 100 07/13/18 14:09 - Labs Result Diagrams: 07/13/18 01:55 07/13/18 01:55 Labs: Laboratory Results - last 24 hr 07/13/18 07/13/18 07/13/18 01:54 01:55 01:55 WBC 7.6 RBC 4.16 Hgb 12.9 Hct 38.0 MCV 91.5 MCH 30.9 MCHC 33.8 RDW 12.8 Plt Count 292 MPV 7.9 Neut % (Auto) 60.8 Lymph % (Auto) 26.3 [place] % (Auto) 8.1 Eos % (Auto) 4.1 H Baso % (Auto) 0.7 Neut # (Auto) 4.6 Lymph # (Auto) 2.0 [place] # (Auto) 0.6 Eos # (Auto) 0.3 Baso # (Auto) 0.1 PT INR APTT Sodium 140 Potassium 3.9 Chloride 104 Carbon Dioxide 26 Anion Gap 14 BUN 8 Creatinine 0.6 L Est GFR ( Amer) > 60 Est GFR (Non-Af Amer) > 60 POC Glucose (mg/dL) 105 Random Glucose 104 Hemoglobin A1c Calcium 9.2 Total Bilirubin 0.6 AST 34 ALT 16 Alkaline Phosphatase 74 Troponin I < 0.0120 Total Protein 7.7 Albumin 4.3 Globulin 3.4 Albumin/Globulin Ratio 1.2 Triglycerides 46 D Cholesterol 132 LDL Cholesterol Direct 64 HDL Cholesterol 52 Urine Opiates Screen Urine Methadone Screen Ur Barbiturates Screen Ur Phencyclidine Scrn Ur Amphetamines Screen U Benzodiazepines Scrn U Oth Cocaine Metabols U Cannabinoids Screen Blood Type Antibody Screen BBK History Checked 07/13/18 07/13/18 07/13/18 01:55 01:55 01:55 WBC RBC Hgb Hct MCV MCH MCHC RDW Plt Count MPV Neut % (Auto) Lymph % (Auto) [place] % (Auto) Eos % (Auto) Baso % (Auto) Neut # (Auto) Lymph # (Auto) [place] # (Auto) Eos # (Auto) Baso # (Auto) PT 11.4 INR 1.0 APTT 29.4 Sodium Potassium Chloride Carbon Dioxide Anion Gap BUN Creatinine Est GFR ( Amer) Est GFR (Non-Af Amer) POC Glucose (mg/dL) Random Glucose Hemoglobin A1c 5.4 Calcium Total Bilirubin AST ALT Alkaline Phosphatase Troponin I Total Protein Albumin Globulin Albumin/Globulin Ratio Triglycerides Cholesterol LDL Cholesterol Direct HDL Cholesterol Urine Opiates Screen Urine Methadone Screen Ur Barbiturates Screen Ur Phencyclidine Scrn Ur Amphetamines Screen U Benzodiazepines Scrn U Oth Cocaine Metabols U Cannabinoids Screen Blood Type O POSITIVE Antibody Screen Negative BBK History Checked Patient has bt 07/13/18 12:56 WBC RBC Hgb Hct MCV MCH MCHC RDW Plt Count MPV Neut % (Auto) Lymph % (Auto) [place] % (Auto) Eos % (Auto) Baso % (Auto) Neut # (Auto) Lymph # (Auto) [place] # (Auto) Eos # (Auto) Baso # (Auto) PT INR APTT Sodium Potassium Chloride Carbon Dioxide Anion Gap BUN Creatinine Est GFR ( Amer) Est GFR (Non-Af Amer) POC Glucose (mg/dL) Random Glucose Hemoglobin A1c Calcium Total Bilirubin AST ALT Alkaline Phosphatase Troponin I Total Protein Albumin Globulin Albumin/Globulin Ratio Triglycerides Cholesterol LDL Cholesterol Direct HDL Cholesterol Urine Opiates Screen Negative Urine Methadone Screen Negative Ur Barbiturates Screen Negative Ur Phencyclidine Scrn Negative Ur Amphetamines Screen Negative U Benzodiazepines Scrn Negative U Oth Cocaine Metabols Negative U Cannabinoids Screen Negative Blood Type Antibody Screen BBK History Checked Assessment & Plan - Assessment and Plan (Free Text) Assessment: 33 yr old woman with Arnold Chiari Malformation who now may be having recurring symptoms related to this disorder. It is a low likelihood that she is having a stroke but we will monitor with MRI Brain. Plan: 1. MRI Brain without contrast 2. Outpatient Neurosurgery consult. Thank you Dr. Alcantar
--- NOTE | 2018-07-14 08:05 | CP.PCM.DIS ---
Provider - Provider Date of Admission: 07/13/18 03:20 Attending physician: Suzan Kamara MD Primary care physician: [facility] Consults: Neurology, Dr. Alcantar Time Spent in preparation of Discharge (in minutes): 40 Diagnosis - Discharge Diagnosis (1) Dizziness Status: Acute (2) Numbness and tingling Status: Acute Comment: Left side of her body Hospital Course - Lab Results Lab Results: Most Recent Lab Values WBC 7.6 K/uL (4.8-10.8) 07/13/18 01:55 RBC 4.16 Mil/uL (3.80-5.20) 07/13/18 01:55 Hgb 12.9 g/dL (12.0-16.0) 07/13/18 01:55 Hct 38.0 % (34.0-47.0) 07/13/18 01:55 MCV 91.5 fl (81.0-99.0) 07/13/18 01:55 MCH 30.9 pg (27.0-31.0) 07/13/18 01:55 MCHC 33.8 g/dL (33.0-37.0) 07/13/18 01:55 RDW 12.8 % (11.5-14.5) 07/13/18 01:55 Plt Count 292 K/uL (130-400) 07/13/18 01:55 MPV 7.9 fl (7.2-11.7) 07/13/18 01:55 Neut % (Auto) 60.8 % (50.0-75.0) 07/13/18 01:55 Lymph % (Auto) 26.3 % (20.0-40.0) 07/13/18 01:55 [place] % (Auto) 8.1 % (0.0-10.0) 07/13/18 01:55 Eos % (Auto) 4.1 % (0.0-4.0) H 07/13/18 01:55 Baso % (Auto) 0.7 % (0.0-2.0) 07/13/18 01:55 Neut # (Auto) 4.6 K/uL (1.8-7.0) 07/13/18 01:55 Lymph # (Auto) 2.0 K/uL (1.0-4.3) 07/13/18 01:55 [place] # (Auto) 0.6 K/uL (0.0-0.8) 07/13/18 01:55 Eos # (Auto) 0.3 K/uL (0.0-0.7) 07/13/18 01:55 Baso # (Auto) 0.1 K/uL (0.0-0.2) 07/13/18 01:55 PT 11.4 Seconds (9.8-13.1) 07/13/18 01:55 INR 1.0 07/13/18 01:55 APTT 29.4 Seconds (25.6-37.1) 07/13/18 01:55 Sodium 140 mmol/l (132-148) 07/13/18 01:55 Potassium 3.9 MMOL/L (3.6-5.0) 07/13/18 01:55 Chloride 104 mmol/L (98-107) 07/13/18 01:55 Carbon Dioxide 26 mmol/L (22-30) 07/13/18 01:55 Anion Gap 14 (10-20) 07/13/18 01:55 BUN 8 mg/dl (7-17) 07/13/18 01:55 Creatinine 0.6 mg/dl (0.7-1.2) L 07/13/18 01:55 Est GFR ( Amer) > 60 07/13/18 01:55 Est GFR (Non-Af Amer) > 60 07/13/18 01:55 POC Glucose (mg/dL) 105 mg/dL (65-110) 07/13/18 01:54 Random Glucose 104 mg/dL (65-105) 07/13/18 01:55 Hemoglobin A1c 5.4 % (4.2-6.5) 07/13/18 01:55 Calcium 9.2 mg/dL (8.4-10.2) 07/13/18 01:55 Total Bilirubin 0.6 mg/dl (0.2-1.3) 07/13/18 01:55 AST 34 U/L (14-36) 07/13/18 01:55 ALT 16 U/L (9-52) 07/13/18 01:55 Alkaline Phosphatase 74 U/L (38-126) 07/13/18 01:55 Troponin I < 0.0120 ng/mL (0.00-0.120) 07/13/18 01:55 Total Protein 7.7 G/DL (6.3-8.2) 07/13/18 01:55 Albumin 4.3 g/dL (3.5-5.0) 07/13/18 01:55 Globulin 3.4 gm/dL (2.2-3.9) 07/13/18 01:55 Albumin/Globulin Ratio 1.2 (1.0-2.1) 07/13/18 01:55 Triglycerides 46 mg/DL (0-149) D 07/13/18 01:55 Cholesterol 132 mg/dL (0-199) 07/13/18 01:55 LDL Cholesterol Direct 64 mg/dL (0-129) 07/13/18 01:55 HDL Cholesterol 52 MG/DL (30-70) 07/13/18 01:55 Urine Opiates Screen Negative (NEGATIVE) 07/13/18 12:56 Urine Methadone Screen Negative (NEGATIVE) 07/13/18 12:56 Ur Barbiturates Screen Negative (NEGATIVE) 07/13/18 12:56 Ur Phencyclidine Scrn Negative (NEGATIVE) 07/13/18 12:56 Ur Amphetamines Screen Negative (NEGATIVE) 07/13/18 12:56 U Benzodiazepines Scrn Negative (NEGATIVE) 07/13/18 12:56 U Oth Cocaine Metabols Negative (NEGATIVE) 07/13/18 12:56 U Cannabinoids Screen Negative (NEGATIVE) 07/13/18 12:56 Blood Type O POSITIVE 07/13/18 01:55 Antibody Screen Negative 07/13/18 01:55 BBK History Checked Patient has bt 07/13/18 01:55 - Hospital Course Hospital Course: 33 y/o female with PMH of GERD, Cerebellar tonsilar ectopia, cervical radiculopathy and Arnold Chiari Malformation admitted to [facility] after an episode of dizziness and left side body numbness. Neurology Dr. Alcantar consulted after the admission, CT head, CTA neck/head and Brain MRI was order which didn't show any acute changes, tumors, bleeding or shifting. Echo was done: EF 55-60% with mild TR. Patient is stable, ambulating, and no neurological deficits. Patient will be discharged home with out patient Neurology and PMD follow up. - Patient was referred to a Neurology at [facility] in past who didn't recommended any surgery for her Arnold Chiari Malformation. Patient has been doing her stretching exercise recommended by Neurology in past. - Home medications: C/w Mobic 15mg PO daily - New medications: None - Referral: Neurology, Dr. Alcantar and [facility] Discharge Exam - Head Exam Head Exam: ATRAUMATIC, NORMAL INSPECTION, NORMOCEPHALIC - Eye Exam Eye Exam: Normal appearance Pupil Exam: NORMAL ACCOMODATION - ENT Exam ENT Exam: Mucous Membranes Moist - Neck Exam Neck exam: Full Rom - Respiratory Exam Respiratory Exam: Clear to PA & Lateral, NORMAL BREATHING PATTERN, UNREMARKABLE. absent: Accessory Muscle Use, Chest Wall Tenderness, Prolonged Expiratory Phase, Wheezes, Respiratory Distress, Stridor - Cardiovascular Exam Cardiovascular Exam: REGULAR RHYTHM, +S1, +S2 - GI/Abdominal Exam GI & Abdominal Exam: Normal Bowel Sounds, Unremarkable. absent: Hyperactive Bowel Sounds, Hypoactive Bowel Sounds, Mass, Rebound, Soft, Tenderness - Extremities Exam Extremities exam: normal capillary refill, normal inspection, pedal pulses present - Back Exam Back exam: absent: CVA tenderness (L), CVA tenderness (R) - Neurological Exam Neurological exam: Alert, CN II-XII Intact, Oriented x3, Reflexes Normal - Psychiatric Exam Psychiatric exam: Normal Affect - Skin Skin Exam: Dry, Intact, Normal Color, Warm Discharge Plan - Follow Up Plan Condition: STABLE Disposition: HOME/ ROUTINE Instructions: Vertigo (a Type of Dizziness), Paresthesias (DC) Additional Instructions: Follow up with Neurology, Dr. Alcantar, with in 1 week of discharge Follow up with [facility] on 07/21/18 at 3:00pm with Dr. Nicho Baker Referrals: Jose Angel Baker MD [Resident] - Bharat Alcantar MD [Medical Doctor] -
[2018-07-14] MEDS: Sodium Chloride 0.9% 1,000 ML IV SCH (08:55)
--- NOTE | 2018-07-14 10:56 | MRI ---
Date of service: 07/13/2018 PROCEDURE: MRI BRAIN WITHOUT CONTRAST HISTORY: stroke COMPARISON: Noncontrast head CT from 07/13/2018. TECHNIQUE: Multiplanar, multisequence MR images of the brain were obtained without intravenous contrast enhancement. FINDINGS: HEMORRHAGE: None DWI: No evidence of an acute or early subacute infarction. BRAIN PARENCHYMA: Tesfyae-white matter differentiation is preserved. There is no mass, mass effect or abnormal extra-axial fluid collection. There is no territorial infarction. The cerebellar tonsils are peg shaped and there is a 10 mm inferior herniation of the cerebellar tonsils below the foramen magnum. VENTRICLES: The ventricles are normal in size, shape and configuration. CRANIUM: There is normal bone marrow signal pattern. ORBITS: Grossly unremarkable. PARANASAL SINUSES/MASTOIDS: Predominantly clear. VASCULAR SYSTEM: There are normal signal voids in the larger intracranial arteries. OTHER FINDINGS: None. IMPRESSION: No acute intracranial abnormality. Findings are consistent with Chiari 1 malformation. A preliminary report was provided by [facility] services.
[2018-07-14 16:04] VITALS: BP 98/64; PULSE 53; RESP 18; TEMP 98.2; O2SAT 98
== END 2018-07-14 17:15 | disposition home or self-care (01) ==
LOC: H.ER 01:01 → H.ERHOLD 03:20 → H.TEL 05:36
PROVIDERS: ADMIT Family Medicine Geriatric Medicine; ATTEND Family Medicine Geriatric Medicine
DX: R42 Dizziness and giddiness (principal); R20.0 Anesthesia of skin; Q07.00 Arnold-Chiari syndrome without spina bifida or hydrocephalus; K21.9 Gastro-esophageal reflux disease without esophagitis; F90.9 Attention-deficit hyperactivity disorder, unspecified type; Z86.73 Personal history of transient ischemic attack (TIA), and cerebral infarction without residual deficits; Z91.013 Allergy to seafood; N18.9 Chronic kidney disease, unspecified; G89.29 Other chronic pain; K75.9 Inflammatory liver disease, unspecified; M50.10 Cervical disc disorder with radiculopathy, unspecified cervical region
CPT/HCPCS: 70450; 70496; 70498; 70551; 71045; 80053; 80061; 82948; 83036; 84484; 85025; 85610; 85730; 86850; 86900; 92526; 92610; 93005; 93306; 97161; 97165; 99285; G0378; G0480; G8978; G8979; G8987; G8992; G8996; G8997; G8998; J7030; Q9967